=== PATIENT | male | born 1965 | race Hispanic/Latino ===

== ENCOUNTER 2017-09-03 15:32 | Emergency (ER) | payer SELFPAY ==
[2017-09-03] MEDS ORDERED: TETANUS/DIPHTHERIA TOXOID [ADULT] 0.5 ML VIAL IM ONE (16:47)
== END 2017-09-03 17:06 | disposition home or self-care (01) ==
LOC: EDH 15:32
DX: S61.212A Laceration without foreign body of right middle finger without damage to nail, initial encounter (principal); Z72.0 Tobacco use; X58.XXXA Exposure to other specified factors, initial encounter; Y93.89 Activity, other specified; Y92.89 Other specified places as the place of occurrence of the external cause; Y99.8 Other external cause status
CPT/HCPCS: 90471; 90714